=== PATIENT | female | born 1965 | race Caucasian/White ===

== ENCOUNTER → 2016-10-28 | Outpatient (CLI) | payer OTHER ==
[2016-10-28 19:09] LABS: CH 30.8; CHCM 32.3; HCT 38.6 % (34.0-46.0); HGB 12.1 gm/dL (11.4-16.0); MCHC 31.3 g/dL (31.0-37.0); MCV 95.9 fL (80.0-100.0); Mean Platelet Volume 8.4; RBC 4.03 m/uL (3.80-5.40); RDW 13.3 % (11.5-15.5); WBC 6.7 k/uL (3.8-10.6)
[2016-10-28 19:16] LABS: Rheumatoid Factor, Qnt <9 IU/mL (<12)
[2016-10-28 19:17] LABS: C Reactive Protein <5.0 mg/L (<10.0)
--- NOTE | 2016-10-28 19:17 | CT ---
EXAMINATION TYPE: CT iac wo con DATE OF EXAM: 10/28/2016 6:53 PM COMPARISON: NONE HISTORY: Bilateral hearing loss x years, worsening. CT DLP: 150.00mGycm Automated exposure control for dose reduction was used. FINDINGS: There is normal aeration of the mastoid air cells. External auditory canals appear normal. There is bilateral normal aeration of the epitympanic recess. Middle ear cavities appear normally aer ated. Semicircular canals and the cochlea appear symmetric. There is no sign of a cerebellopontine an gle mass. Internal auditory canals are symmetric. IMPRESSION: Negative CT scan of the temporal bones and internal auditory canals. I do not see a cause for hearing loss.
[2016-10-28 20:05] LABS: Erythrocyte Sedimentation Rate 6 mm/hr (0-20)
[2016-10-31 14:41] LABS: C-ANCA <1:20 Titer (<1:20); P-ANCA <1:20 Titer (<1:20)
[2016-11-02 09:36] LABS: Mis test requested (Blood) HSP70 replaces 68KD
== END | disposition home or self-care (01) ==
LOC: RADCTMAIN 17:14
PROVIDERS: ATTEND Otolaryngology
DX: H90.3 Sensorineural hearing loss, bilateral (principal)
CPT/HCPCS: 70480; 83516; 85027; 85652; 86038; 86140; 86255; 86431; 87076

== ENCOUNTER → 2017-06-06 | Outpatient (CLI) | payer OTHER ==
--- NOTE | 2017-06-07 07:34 | MM ---
Reason for exam: screening (asymptomatic). Last mammogram was performed 1 year and 2 months ago. History: Patient has history of endometrial cancer at age 26. Family history of breast cancer in 2 aunts, breast cancer in cousin, and breast cancer in maternal grandmother. Taking estrogen. Physical Findings: A clinical breast exam by your physician is recommended on an annual basis and results should be correlated with mammographic findings. MG Screening Mammo w CAD Bilateral CC and MLO view(s) were taken. XCCL view(s) were taken of the left breast. Prior study comparison: April 19, 2016, bilateral MG screening mammo w CAD. March 03, 2015, bilateral MG screening mammo w CAD. There are scattered fibroglandular densities. There is no discrete abnormality. No significant changes when compared with prior studies. ASSESSMENT: Negative, BI-RAD 1 RECOMMENDATION: Routine screening mammogram of both breasts in 1 year.
== END | disposition home or self-care (01) ==
LOC: RADMAMWWP 08:15
PROVIDERS: ATTEND Family Medicine
DX: Z12.31 Encounter for screening mammogram for malignant neoplasm of breast (principal)

== ENCOUNTER 2017-06-20 09:11 | Day surgery (SDC) | payer OTHER ==
[2017-06-19 08:44] VITALS: BMI 29.8
[2017-06-20 09:26] VITALS: RESP 16; TEMP 98.1
[2017-06-20] MEDS ORDERED: LIDOCAINE 1% 20 ML VIAL (10MG/ML) FOR IV START INTRADERMA ONE (09:33)
[2017-06-20] MEDS: LACTATED RINGERS 1,000 ML IV SCH ×2 (09:33→09:34)
[2017-06-20] MEDS ORDERED: PROPOFOL 10 MG/ML 20 ML VIAL IV ONE (09:37)
--- NOTE | 2017-06-20 10:14 | P.PCN ---
Date of Procedure: 06/20/17 Procedure(s) Performed: Procedures: 1. Esophagogastroduodenoscopy and biopsy. 2. Total colonoscopy. Preoperative diagnosis: Chronic reflux symptoms and screening for colon neoplasia. Postoperative diagnosis: 1. Small sliding hiatal hernia with no obvious esophagitis or complicated reflux disease. 2. Mild antral gastritis. 3. Normal colonoscopy. Preparation: HalfLytely prep. Sedation: Was provided by anesthesia. Brief clinical history: The patient is a 51-year-old female who was recently evaluated in the office for chronic reflux symptoms requiring BID PPI therapy. She was scheduled for an EGD evaluation as well for screening for colon neoplasia as she has had no prior colonoscopy. She has some constipation issues. No family history of colon cancer. Procedure: With the patient on her left lateral decubitus position and after informed consent and adequate sedation, I passed the Olympus-GIF 160 video upper endoscope through the cricopharyngeus down the esophagus. GE junction was around 32 cm from the incisors and there was a small sliding hiatal hernia measuring between 1-2 cm. The esophagus did not show any obvious erosions, ulcers, strictures or Ruiz's esophagus. The endoscope was then passed into the stomach which was insufflated with air and inspected in detail including the retroflex view of the cardia. There was some mottling and erythema in the antrum but no ulcers or erosions. Pyloric channel, duodenal bulb, post bulbar area and descending duodenum appeared within normal limits. Because of her symptoms, I obtained biopsies from the duodenum antrum and esophagus then the endoscope was withdrawn and I proceeded with the colonoscopy. Perianal area did not show any fissures or fistulas. There were no masses felt on digital rectal examination. The Olympus CFQ 160L video colonoscope was then inserted in the rectum in the usual fashion and advanced to the cecum. The mucosa appeared healthy. No polyps or tumors were seen or any obvious diverticular disease or other pathology. I retroflexed the endoscope in the rectum before the endoscope was withdrawn. The patient tolerated the procedure well. Plan: The patient was reassured. Will await pathology results. She will follow -up with you as planned and I recommended repeat colonoscopy in 10 years.
[2017-06-20 10:40] VITALS: BP 126/81; PULSE 54
== END 2017-06-20 10:47 | disposition home or self-care (01) ==
LOC: ORWHC2ENDO 09:11
DX: Z12.11 Encounter for screening for malignant neoplasm of colon (principal); K44.9 Diaphragmatic hernia without obstruction or gangrene; K29.50 Unspecified chronic gastritis without bleeding; K21.9 Gastro-esophageal reflux disease without esophagitis; Z79.899 Other long term (current) drug therapy; Z88.1 Allergy status to other antibiotic agents; Z88.5 Allergy status to narcotic agent
CPT/HCPCS: 88305; 88342; 43239; J2704; G0121

== ENCOUNTER → 2018-07-03 | Outpatient (CLI) | payer OTHER ==
--- NOTE | 2018-07-04 09:28 | MM ---
Reason for exam: screening (asymptomatic). Last mammogram was performed 1 year and 1 month ago. History: Patient has history of endometrial cancer at age 26. Family history of breast cancer in 2 aunts, breast cancer in cousin, and breast cancer in maternal grandmother. Taking estrogen. Physical Findings: A clinical breast exam by your physician is recommended on an annual basis and results should be correlated with mammographic findings. MG Screening Mammo w CAD Bilateral CC and MLO view(s) were taken. Prior study comparison: June 06, 2017, bilateral MG screening mammo w CAD. April 19, 2016, bilateral MG screening mammo w CAD. There are scattered fibroglandular densities. There is no discrete abnormality. ASSESSMENT: Negative, BI-RAD 1 RECOMMENDATION: Routine screening mammogram of both breasts in 1 year.
== END ==
LOC: RADMAMWWP 08:15
PROVIDERS: ATTEND Obstetrics & Gynecology
DX: Z12.31 Encounter for screening mammogram for malignant neoplasm of breast (principal)
CPT/HCPCS: 77067

== ENCOUNTER → 2019-07-22 | Outpatient (CLI) | payer BC ==
--- NOTE | 2019-07-23 09:26 | MM ---
Reason for exam: screening (asymptomatic). Last mammogram was performed 1 year and 1 month ago. History: Patient has history of other cancer at age 26. Family history of breast cancer in 2 maternal aunts, breast cancer in cousin, and breast cancer in maternal grandmother. Taking estrogen. Physical Findings: A clinical breast exam by your physician is recommended on an annual basis and results should be correlated with mammographic findings. MG 3D Screening Mammo W/Cad Bilateral CC and MLO view(s) were taken. Prior study comparison: July 03, 2018, bilateral MG screening mammo w CAD. June 06, 2017, bilateral MG screening mammo w CAD. There are scattered fibroglandular densities. There are benign appearing round calcifications in the left breast. There is no discrete abnormality. Benign bilateral axilla lymph nodes. ASSESSMENT: Negative, BI-RAD 1 RECOMMENDATION: Routine screening mammogram of both breasts in 1 year.
== END | disposition home or self-care (01) ==
LOC: RADMAMWWP 11:00
PROVIDERS: ATTEND Family Medicine
DX: Z12.31 Encounter for screening mammogram for malignant neoplasm of breast (principal)
CPT/HCPCS: 77063; 77067

== ENCOUNTER 2020-06-05 11:39 | Emergency (ER) | payer BC, OTHER ==
--- NOTE | 2020-06-05 12:32 | ED ---
Fall HPI - General Chief Complaint: Fall Stated Complaint: work conchita Time Seen by Provider: 06/05/20 11:46 Source: patient, old records reviewed Mode of arrival: ambulatory - History of Present Illness Initial Comments: Vidya is a 54-year-old female who presents the emergency department today for evaluation 3 days post accident at work. Patient reports that she tripped on a wheeled stool and fell forward hitting her head on the left side on the door well. She reports she hit her head hard was feeling dizzy and nauseated afterward. Today she reports she's been trying to follow with [facility] for testing and evaluation and has had some administrative difficulties. She was sent here for evaluation due to the history of the head injury associated with her symptoms. Patient denies fevers or chills. Denies chest pain, shortness of breath. She denies any abdominal pain. Her main complaints are left shoulder pain with range of motion and left hip pain, neck pain. - Related Data Home Medications Medication Instructions Recorded Confirmed Cholecalciferol (Vitamin D3) 2,000 unit PO DAILY 06/19/17 06/20/17 [Vitamin D3] Multivitamins, Thera [Multivitamin 1 tab PO DAILY 06/19/17 06/20/17 (formulary)] Omeprazole [PriLOSEC] 40 mg PO BID 06/19/17 06/20/17 Turmeric Root Extract [Turmeric] 500 mg PO DAILY 06/19/17 06/20/17 buPROPion HCL [Wellbutrin SR] 150 mg PO HS 06/19/17 06/20/17 buPROPion HCL [Wellbutrin SR] 300 mg PO QAM 06/19/17 06/20/17 Allergies Allergy/AdvReac Type Severity Reaction Status Date / Time erythromycin base AdvReac GI upset Verified 06/20/17 09:26 morphine AdvReac Itching Verified 06/20/17 09:26 Review of Systems ROS Statement: Those systems with pertinent positive or pertinent negative responses have been documented in the HPI. ROS Other: All systems not noted in ROS Statement are negative. Past Medical History Past Medical History: GERD/Reflux Additional Past Medical History / Comment(s): occasional constipation History of Any Multi-Drug Resistant Organisms: None Reported Past Surgical History: Section, Cholecystectomy, Hysterectomy Past Anesthesia/Blood Transfusion Reactions: No Reported Reaction Past Psychological History: ADD/ADHD Smoking Status: Former smoker Past Alcohol Use History: Occasional Past Drug Use History: None Reported - Past Family History Mother Family Medical History: Blood Disorder, CVA/TIA Additional Family Medical History / Comment(s): lupus anti-coagulant factor General Exam - General Exam Comments Initial Comments: 54-year-old female. Alert and oriented 3. Limitations: no limitations General appearance: alert, in no apparent distress Head exam: Present: atraumatic, normocephalic, normal inspection Eye exam: Present: normal appearance, PERRL, EOMI. Absent: scleral icterus, conjunctival injection, periorbital swelling ENT exam: Present: normal exam, normal oropharynx, mucous membranes dry, mucous membranes moist Neck exam: Present: normal inspection, other (Some midline tenderness over the lower C-spine). Absent: tenderness, meningismus, lymphadenopathy Respiratory exam: Present: normal lung sounds bilaterally. Absent: respiratory distress, wheezes, rales, rhonchi, stridor Cardiovascular Exam: Present: regular rate, normal rhythm, normal heart sounds. Absent: systolic murmur, diastolic murmur, rubs, gallop, clicks GI/Abdominal exam: Present: soft, normal bowel sounds. Absent: distended, tenderness, guarding, rebound, rigid Left Shoulder Exam: Present: normal inspection, full ROM, tenderness (Patient is tenderness over the deltoid and AC joint. .) Upper Arm exam: Present: normal inspection, full ROM Elbow exam: Present: normal inspection, full ROM Forearm Wrist exam: Present: normal inspection, full ROM Hand Wrist exam: Present: normal inspection, full ROM Neuro motor exam: Present: wrist extension intact, thumb opposition intact, thumb IP flexion intact, thumb adduction intact, fingers 2-5 abduction intact Vascular: Present: normal capillary refill Course Vital Signs 06/05/20 11:41 Temperature 98.3 F Pulse Rate 76 Respiratory 16 Rate Blood Pressure 132/75 O2 Sat by Pulse 99 Oximetry Medical Decision Making - Medical Decision Making His is alert and oriented 54-year-old female. She presents the ER today for evaluation for return to work. Patient reports that she fell on Monday. Patient struck fell hitting her head complaint of left shoulder and left hip pain. Patient was having a difficult time getting paperwork for [facility] and was sent here for further evaluation after [facility] determine she had a head injury. She has no acute neurological deficits at this time. She complained of some midline neck pain. Patient denies any other significant symptoms. Patient had CT brain and C-spine which was negative for acute process. Shoulder and hip x-rays are negative for acute findings fracture dislocation. Lumbar spine x-ray shows evidence of degenerative changes. List of this and treat with antibiotic treatments and that she could be cleared to return to work she has full range of motion and no other concerning signs or symptoms. Patient is agreeable to treatment plan will comply. Return parameters were discussed. - Radiology Data Radiology results: report reviewed Mild degenerative disc changes at L3-L4 posteriorly. No fracture dislocation of pelvis or left hip. No fracture dislocation and left shoulder. CT of the brain and C-spine showed no fracture dislocation evident cervical spine. No acute intracranial hemorrhage or mass effect or midline shift is seen. Disposition Clinical Impression: Head injury, Work related injury, Left shoulder strain, Hip strain Disposition: HOME SELF-CARE Condition: Stable Instructions (If sedation given, give patient instructions): Concussion (ED), Shoulder Pain (ED), Hip Contusion (ED) Additional Instructions: Patient advised to a take Motrin Tylenol for pain. Follow-up with primary care physician or [facility] for further evaluation. Patient should apply warm compresses over the areas are sore. Is patient prescribed a controlled substance at d/c from ED?: No Referrals: Donald Nicholson DO [Primary Care Provider] - 1-2 days Time of Disposition: 13:05
--- NOTE | 2020-06-05 12:37 | CT ---
EXAMINATION TYPE: CT brain cesarine wo con DATE OF EXAM: 06/05/2020 COMPARISON: None HISTORY: Pain, fall, frontal head injury and neck pain. Automated exposure control for dose reduction was used. TECHNIQUE: CT scan of the head and cervical spine are performed without contrast. FINDINGS: There is no acute intracranial hemorrhage, mass effect, or midline shift identified. No extra-axial fluid collection. The ventricles and sulci are within normal limits in size. The globes are grossly symmetric. Mastoid air cells and sinuses are clear. No evidence of depressed or displace d calvarial fracture. Subcentimeter soft tissue nodule of the left frontal region. Cervical spine is visualized in its entirety from C1 through upper thoracic levels and demonstrates s atisfactory alignment without evidence of acute fracture or dislocation. Prevertebral soft tissue ap pears within normal limits. The C1-C2 articulation is unremarkable. Degenerative change at C5-C6 and C6-C7. All IMPRESSION: 1. There is no acute fracture or dislocation evident in the cervical spine. 2. No acute intracranial hemorrhage, mass effect, or midline shift is seen.
--- NOTE | 2020-06-05 12:49 | XR ---
EXAMINATION TYPE: XR shoulder complete LT DATE OF EXAM: 06/05/2020 CLINICAL HISTORY: Left shoulder pain after fall injury. TECHNIQUE: Three views of the left shoulder are obtained. COMPARISON: None. FINDINGS: There is no acute fracture/dislocation evident in the left shoulder. The acromioclavicula r and glenohumeral joint spaces appear within normal limits. Distal acromion morphology maintained. The visualized ribs are intact and unremarkable. IMPRESSION: There is no acute fracture or dislocation in the left shoulder.
--- NOTE | 2020-06-05 12:56 | XR ---
EXAMINATION TYPE: XR Hip LT and AP Pelvis DATE OF EXAM: 06/05/2020 COMPARISON: NONE HISTORY: Pelvic and left hip pain after fall injury. TECHNIQUE: A single AP view of the pelvis is obtained. Two views of the left hip are obtained. FINDINGS: There is no acute fracture/dislocation evident in the pelvis. The sacroiliac joints appear symmetric and unremarkable. Pubic symphysis is intact. Scattered bilateral pelvic phleboliths. Mild -to-moderate symmetric axial joint space loss in both hips is noted. Two views of left hip show no acute fracture or dislocation. No focal lytic or sclerotic lesion seen in the proximal left femur. The overlying soft tissue is unremarkable. IMPRESSION: There is no acute fracture or dislocation in the pelvis or left hip.
--- NOTE | 2020-06-05 13:00 | XR ---
EXAMINATION TYPE: XR lumbar spine 2 or 3V DATE OF EXAM: 06/05/2020 COMPARISON: None HISTORY: Pain, fall TECHNIQUE: Three-view lumbar spine FINDINGS: There 5 lumbar-type vertebral bodies. Pedicles are intact. Some mild posterior disc space n arrowing is present L3-4. Mild anterior vertebral body spurring is present L3 and L4. Vascular calcif ications within the aorta Vertebral body heights are preserved. Alignment is normal. IMPRESSION: 1. Mild degenerative disc changes L3-4 posteriorly
[2020-06-05 13:43] VITALS: BP 117/81; PULSE 70; RESP 18; TEMP 98
== END 2020-06-05 13:43 | disposition home or self-care (01) ==
LOC: EC 11:39
DX: S09.90XA Unspecified injury of head, initial encounter (principal); S46.912A Strain of unspecified muscle, fascia and tendon at shoulder and upper arm level, left arm, initial encounter; S76.012A Strain of muscle, fascia and tendon of left hip, initial encounter; K21.9 Gastro-esophageal reflux disease without esophagitis; F90.9 Attention-deficit hyperactivity disorder, unspecified type; Z79.899 Other long term (current) drug therapy; Z88.1 Allergy status to other antibiotic agents; Z88.5 Allergy status to narcotic agent; Z87.891 Personal history of nicotine dependence; W01.198A Fall on same level from slipping, tripping and stumbling with subsequent striking against other object, initial encounter; Y93.89 Activity, other specified; Y92.69 Other specified industrial and construction area as the place of occurrence of the external cause; Y99.0 Civilian activity done for income or pay; Z82.3 Family history of stroke
CPT/HCPCS: 70450; 72100; 72125; 73502; 99284

== ENCOUNTER → 2020-11-09 | Outpatient (CLI) | payer BC ==
--- NOTE | 2020-11-10 11:59 | MM ---
Reason for exam: screening (asymptomatic). Last mammogram was performed 1 year and 4 months ago. History: Patient has history of other cancer at age 26. Family history of breast cancer in 2 maternal aunts, breast cancer in cousin, and breast cancer in maternal grandmother. Taking estrogen. Physical Findings: A clinical breast exam by your physician is recommended on an annual basis and results should be correlated with mammographic findings. MG 3D Screening Mammo W/Cad Bilateral CC and MLO view(s) were taken. Prior study comparison: July 22, 2019, bilateral MG 3d screening mammo w/cad. July 03, 2018, bilateral MG screening mammo w CAD. The breast tissue is almost entirely fat. No significant changes when compared with prior studies. ASSESSMENT: Benign, BI-RAD 2 RECOMMENDATION: Routine screening mammogram of both breasts in 1 year.
== END | disposition home or self-care (01) ==
LOC: RADMAMWWP 08:19
PROVIDERS: ATTEND Obstetrics & Gynecology
DX: Z12.31 Encounter for screening mammogram for malignant neoplasm of breast (principal); Z80.3 Family history of malignant neoplasm of breast
CPT/HCPCS: 77063; 77067

== ENCOUNTER → 2021-11-29 | Outpatient (CLI) | payer BC ==
--- NOTE | 2021-11-30 11:00 | MM ---
Reason for exam: screening (asymptomatic). Last mammogram was performed 1 year and 1 month ago. History: Patient has history of other cancer at age 26. Family history of breast cancer in 2 maternal aunts, breast cancer in cousin, and breast cancer in maternal grandmother. Physical Findings: A clinical breast exam by your physician is recommended on an annual basis and results should be correlated with mammographic findings. MG 3D Screening Mammo W/Cad Bilateral CC and MLO view(s) were taken. Prior study comparison: November 09, 2020, bilateral MG 3d screening mammo w/cad. July 22, 2019, bilateral MG 3d screening mammo w/cad. There are scattered fibroglandular densities. There is no discrete abnormality. ASSESSMENT: Negative, BI-RAD 1 RECOMMENDATION: Routine screening mammogram of both breasts in 1 year.
== END | disposition home or self-care (01) ==
LOC: RADMAMWWP 09:04
PROVIDERS: ATTEND Family Medicine
DX: Z12.31 Encounter for screening mammogram for malignant neoplasm of breast (principal); Z80.3 Family history of malignant neoplasm of breast
CPT/HCPCS: 77063; 77067

== ENCOUNTER → 2022-12-26 | Outpatient (CLI) | payer BC ==
--- NOTE | 2022-12-27 11:53 | MM ---
Reason for Exam: Screening (asymptomatic). Last mammogram was performed 1 year(s) and 1 month(s) ago. Patient History: Menarche at age 15. First Full-Term at age 29. Left ovary removed at age 42. Hysterectomy at age 42. Other cancer, age 26. Maternal grandmother had breast cancer. Maternal cousin had breast cancer. Maternal aunt had breast cancer. Maternal aunt had breast cancer. Risk Values: Beth 5 year model risk: 1.2%. NCI Lifetime model risk: 8.1%. Prior Study Comparison: 07/22/2019 Bilateral Screening Mammogram, [facility]. 11/09/2020 Bilateral Screening Mammogram, [facility]. 11/29/2021 Bilateral Screening Mammogram, [facility]. Tissue Density: The breast tissue is almost entirely fat. Findings: Analyzed By CAD. There is no suspicious group of microcalcifications or new suspicious mass in either breast. Overall Assessment: Negative, BI-RAD 1 Management: Screening Mammogram of both breasts in 1 year. A clinical breast exam by your physician is recommended on an annual basis and results should be correlated with mammographic findings. [facility] will attempt to contact patient to return for supplemental views and ultrasound if indicated. Electronically signed and approved by: Fito Person DO
== END | disposition home or self-care (01) ==
LOC: RADMAMWWP 11:59
PROVIDERS: ATTEND Family Medicine
DX: Z12.31 Encounter for screening mammogram for malignant neoplasm of breast (principal); Z80.3 Family history of malignant neoplasm of breast
CPT/HCPCS: 77063; 77067

== ENCOUNTER → 2023-04-18 | Outpatient (CLI) | payer BC ==
--- NOTE | 2023-04-18 18:33 | XR ---
EXAMINATION TYPE: XR knee limited LT DATE OF EXAM: 04/18/2023 COMPARISON: NONE HISTORY: 57-year-old female M25.562, pain and swelling TECHNIQUE: 2 views FINDINGS: Mild tricompartmental degenerative spurring. Trace knee joint effusion. Extensor mechanism appears intact. No acute fracture, subluxation, dislocation seen. IMPRESSION: Mild tricompartmental degenerative spurring. Trace knee joint effusion may be reactive. If concern fo r internal derangement, MRI can be performed. No acute osseous abnormality seen.
== END | disposition home or self-care (01) ==
LOC: RADXRMAIN 15:06
PROVIDERS: ATTEND Family Medicine
DX: M17.12 Unilateral primary osteoarthritis, left knee (principal); M25.462 Effusion, left knee; M76.9 Unspecified enthesopathy, lower limb, excluding foot

== ENCOUNTER → 2023-05-08 | Outpatient (CLI) | payer BC ==
--- NOTE | 2023-05-08 07:54 | US ---
EXAMINATION TYPE: US abdomen complete DATE OF EXAM: 05/08/2023 COMPARISON: NONE CLINICAL INDICATION: Female, 57 years old with history of R19.05 PERIUMBILIC SWELLING, MASS OR LUMP; GB removed. Patient had tummy tuck in January 2023: Palpable lower left superior to umbilicus. TECHNIQUE: Multiple sonographic images of the abdomen are obtained. FINDINGS: EXAM MEASUREMENTS: Liver Length: 15.6 cm CBD: 0.6 cm Spleen: 10.1 cm Right Kidney: 9.5 x 4.8 x 4.3 cm Left Kidney: 9.7 x 4.9 x 5.8 cm Pancreas: wnl Liver: wnl Gallbladder: Surgically absent Evidence for sonographic Thacker's sign: neg CBD: wnl Spleen: wnl Right Kidney: No hydronephrosis or masses seen Left Kidney: No hydronephrosis or masses seen Upper IVC: wnl Abd Aorta: Distal obscured by overlying bowel gas Patients palpable scanned with complex fluid collection seen - 14.3 x 9.4 x 5.1 cm. Consider larg e hematoma within the differential. IMPRESSION: Complex heterogenous collection left abdomen from the umbilical region towards the diaphragm. This me asures 14.3 x 5.[address] abdomen and pelvis recommended for additional workup.
== END | disposition home or self-care (01) ==
LOC: RADUSWWP 07:06
PROVIDERS: ATTEND Family Medicine
DX: R19.05 Periumbilic swelling, mass or lump (principal)
CPT/HCPCS: 76700

== ENCOUNTER → 2023-08-24 | Outpatient (CLI) | payer OTHER ==
--- NOTE | 2023-08-24 10:54 | XR ---
EXAMINATION TYPE: XR wrist complete RT DATE OF EXAM: 08/24/2023 CLINICAL HISTORY: pain TECHNIQUE: Frontal, lateral and oblique images of the right wrist are obtained. COMPARISON: None. FINDINGS: There is no acute fracture/dislocation evident. The joint spaces appear within normal limits. The o verlying soft tissue appears unremarkable. IMPRESSION: There is no acute fracture or dislocation seen. ICD 10 NO FRACTURE, INITIAL EVALUATION
--- NOTE | 2023-08-24 10:55 | XR ---
EXAMINATION TYPE: XR knee complete LT DATE OF EXAM: 08/24/2023 CLINICAL HISTORY: pain TECHNIQUE: Three views of the left knee are obtained. COMPARISON: None. FINDINGS: There is no acute fracture/dislocation. The tri-compartment joint spaces appear within no rmal limits. The overlying soft tissue appears unremarkable. IMPRESSION: There is no acute fracture or dislocation ICD 10 NO FRACTURE, INITIAL EVALUATION
--- NOTE | 2023-08-24 10:55 | XR ---
EXAMINATION TYPE: XR hand complete RT DATE OF EXAM: 08/24/2023 CLINICAL HISTORY: pain TECHNIQUE: Frontal, lateral and oblique images of the right hand are obtained. COMPARISON: None. FINDINGS: There is no acute fracture/dislocation evident. Moderate degenerative change DIP joint rig ht second digit. Remaining joint spaces are well-preserved. The overlying soft tissue appears unremar kable. IMPRESSION: There is no acute fracture or dislocation. Osteoarthritis. ICD 10 NO FRACTURE, INITIAL EVALUATION
--- NOTE | 2023-08-24 10:56 | XR ---
EXAMINATION TYPE: XR shoulder complete LT DATE OF EXAM: 08/24/2023 CLINICAL HISTORY: pain COMPARISON: NONE TECHNIQUE: Three views of the left shoulder are obtained. FINDINGS: There is no acute fracture/dislocation evident. The acromioclavicular and glenohumeral evelin int spaces appear within normal limits. The visualized ribs are intact and unremarkable. IMPRESSION: 1. There is no acute fracture or dislocation. ICD 10 NO FRACTURE, INITIAL EVALUATION
== END | disposition home or self-care (01) ==
LOC: RADXRMAIN 09:20
PROVIDERS: ATTEND Emergency Medicine
DX: S40.012A Contusion of left shoulder, initial encounter (principal); S80.02XA Contusion of left knee, initial encounter; S60.211A Contusion of right wrist, initial encounter; S60.221A Contusion of right hand, initial encounter

== ENCOUNTER → 2023-11-13 | Outpatient (CLI) | payer BC ==
--- NOTE | 2023-11-13 20:10 | CT ---
EXAMINATION TYPE: CT abdomen pelvis w con DATE OF EXAM: 11/13/2023 COMPARISON: None HISTORY: Swelling between breasts and upper mid abdomen x [address] DLP: 960.6 mGycm Automated exposure control for dose reduction was used. TECHNIQUE: Helical acquisition of images was performed from the lung bases through the pelvis. CONTRAST: Performed with Oral Contrast and with IV Contrast, patient injected with 100 mL of Isovue 370. FINDINGS: The lung bases are clear. There is surgical absence of gallbladder.. There is no biliary ductal dilatation. There is no focal mass or organomegaly involving the liver, pancreas, spleen or adrenal glands. There is no solid renal mass or hydronephrosis and there is homogeneous contrast enhancement of the r enal parenchyma. The caliber the abdominal aorta is normal is no retroperitoneal adenopathy or hemorr shanelle. The bowel loops are normal in caliber and there is no evidence of dilatation or obstruction. No infla mmatory changes are identified in the bowel wall or mesentery. There is no free intraperitoneal air or fluid. No pelvic mass, free fluid, abscess or adenopathy. There are surgical absence of the uterus In the subcutaneous anterior abdomen slightly greater left of midline, there is a low circumscribed 8 .0 x 3.6 cm low density fluid collection consistent with old hematoma or seroma. The osseous structures are intact. IMPRESSION: 1. Anterior abdominal subcutaneous well-circumscribed fluid collection as described above. 2. No significant amount within the abdomen or pelvis.
== END | disposition home or self-care (01) ==
LOC: RADCTMAIN 17:01
PROVIDERS: ATTEND Family Medicine
DX: K91.871 Postprocedural hematoma of a digestive system organ or structure following other procedure (principal)
CPT/HCPCS: 74177; Q9967

== ENCOUNTER 2024-01-12 13:32 | Day surgery (SDC) | payer BC ==
[2024-01-12 14:15] VITALS: RESP 18; TEMP 98.7
[2024-01-12 15:42] VITALS: BP 135/82; PULSE 72
--- NOTE | 2024-01-12 16:10 | US ---
EXAMINATION TYPE: US guided soft tissue drainage DATE OF EXAM: 01/12/2024 CLINICAL HISTORY: 58-year-old female L76.34 POSTPROC SEROMA OF SKIN, SUBCU FOLLOWING OT, patient sta tus post tummy tuck with continued symptomatic seroma. The procedure was discussed with the patient. The risks, complications, benefits, and alternatives we re discussed and any questions were answered. Informed consent was obtained. The patient was placed s upine on the ultrasound table and prepped and draped in the usual sterile fashion. All elements of maximal barrier technique were utilized. 1% local lidocaine was utilized for skin an d deeper tissue anesthesia. Under ultrasound guidance, access into the 10.2 cm lower abdominal, subcutaneous seroma was obtained, via the 5 German paracentesis catheter system and direct ultrasound guidance. A total of 55 mL dark serosanguineous fluid was aspirated and the seroma collapsed. The catheter was removed, hemostasis obtained, and dressing placed. The patient was stable throughout the procedure and remained stable upon discharge from Department of Radiology. IMPRESSION: Successful abdominal wall seroma aspiration. Essentially complete collapse of the seroma with aspirat ion.
== END 2024-01-12 15:20 | disposition home or self-care (01) ==
LOC: RADPROMAIN 13:32
PROVIDERS: ATTEND Plastic Surgery
DX: L76.34 Postprocedural seroma of skin and subcutaneous tissue following other procedure (principal)
CPT/HCPCS: 10030; 76942

== ENCOUNTER → 2025-02-28 | Outpatient (CLI) | payer BC ==
--- NOTE | 2025-02-28 07:40 | MM ---
Reason for Exam: Screening (asymptomatic). Last mammogram was performed 2 year(s) and 2 month(s) ago. Patient History: Menarche at age 15. First Full-Term at age 29. Left ovary removed at age 42. Hysterectomy at age 42. Patient used Hormonal Contraceptives for 5 years. 01/2023, Bilateral Reduction. Maternal grandmother had breast cancer. Maternal cousin had breast cancer. Maternal aunt had breast cancer. Maternal aunt had breast cancer. Maternal cousin had breast cancer at or over age 50. Maternal cousin had breast cancer. Risk Values: Beth 5 year model risk: 1.4%. NCI Lifetime model risk: 7.8%. Prior Study Comparison: 11/09/2020 Bilateral Screening Mammogram, [facility]. 11/29/2021 Bilateral Screening Mammogram, [facility]. 12/26/2022 Bilateral MG 3D screening mammo w/cad, [facility]. Tissue Density: There are scattered areas of fibroglandular density. Findings: Analyzed By CAD. There is an area of asymmetric density central upper right breast spot compression. There is an area of density with lucent grouped calcifications upper outer left breast and within the central left breast for which spot magnification views recommended. Overall Assessment: Incomplete: need additional imaging evaluation, BI-RAD 0 Management: Special View Mammogram of both breasts. . Patient should continue monthly self-breast exams. A clinical breast exam by your physician is recommended on an annual basis. This exam should not preclude additional follow-up of suspicious palpable abnormalities. Note on Beth scores and lifetime risk: 1. A Beth score greater than 3% is considered moderate risk. If this is the case, consider specialist referral to assess eligibility for a risk reducing agent. 2. If overall lifetime risk for the development of breast cancer is 20% or higher, the patient may qualify for future screening with alternating mammogram and breast MRI. [facility], , 02/28/2025 7:37 AM. Electronically signed and approved by: Abundio Walsh M.D. Radiologis
== END | disposition home or self-care (01) ==
LOC: RADMAMWWP 07:17
PROVIDERS: ATTEND Family Medicine
DX: Z12.31 Encounter for screening mammogram for malignant neoplasm of breast (principal); R92.323 Mammographic fibroglandular density, bilateral breasts; R92.1 Mammographic calcification found on diagnostic imaging of breast; Z92.0 Personal history of contraception; Z80.3 Family history of malignant neoplasm of breast
CPT/HCPCS: 77063; 77067

== ENCOUNTER → 2025-03-12 | Outpatient (CLI) | payer BC ==
--- NOTE | 2025-03-12 09:51 | MM ---
Reason for Exam: Additional evaluation requested from abnormal screening. Last screening mammogram was performed less than 1 month ago. Patient History: Menarche at age 15. First Full-Term at age 29. Left ovary removed at age 42. Hysterectomy at age 42. Patient used Hormonal Contraceptives for 5 years. 01/2023, Bilateral Reduction. Maternal grandmother had breast cancer. Maternal cousin had breast cancer. Maternal aunt had breast cancer. Maternal aunt had breast cancer. Maternal cousin had breast cancer at or over age 50. Maternal cousin had breast cancer. Risk Values: Beth 5 year model risk: 1.4%. NCI Lifetime model risk: 7.8%. Prior Study Comparison: 12/26/2022 Bilateral MG 3D screening mammo w/cad, [facility]. 02/28/2025 Bilateral MG 3D screening mammo w/cad, [facility]. Tissue Density: There are scattered areas of fibroglandular density. Findings: Analyzed By CAD. Areas bilaterally with ulcerations are thought to represent scarring or fat necrosis. No new suspicious masses, calcifications or distortions. Overall Assessment: Benign, BI-RAD 2 Management: Screening Mammogram of both breasts in 1 year. Results were given to the patient verbally at the time of exam. Patient should continue monthly self-breast exams. A clinical breast exam by your physician is recommended on an annual basis. This exam should not preclude additional follow-up of suspicious palpable abnormalities. Note on Beth scores and lifetime risk: 1. A Beth score greater than 3% is considered moderate risk. If this is the case, consider specialist referral to assess eligibility for a risk reducing agent. 2. If overall lifetime risk for the development of breast cancer is 20% or higher, the patient may qualify for future screening with alternating mammogram and breast MRI. [facility], , 03/12/2025 7:43 AM. Electronically signed and approved by: Fito Person DO
== END | disposition home or self-care (01) ==
LOC: RADMAMWWP 07:10
PROVIDERS: ATTEND Family Medicine
DX: R92.8 Other abnormal and inconclusive findings on diagnostic imaging of breast (principal); R92.323 Mammographic fibroglandular density, bilateral breasts; Z92.0 Personal history of contraception; Z80.3 Family history of malignant neoplasm of breast
CPT/HCPCS: 77062; 77066